=== PATIENT | female | born 1990 | race Caucasian/White ===

== ENCOUNTER → 2016-09-11 | Outpatient (CLI) | payer OTHER ==
[~2016-09-11] MED LIST: AMOX500C PO; BUSP5TA PO; ENOX80SY SC; FLUO20CA9 PO; HEPA50VL IM; PERCOCET PO; PROTPAK PO; ZOLO100T PO; ZOLO25TA PO
[2016-09-11 10:05] LABS: MEAN CORPUSCULAR HEMOGLOBIN 30.2 pg (27.0-33.0); MEAN CORPUSCULAR HGB CONC 33.9 g/dl (32.0-36.5); RED CELL DISTRIBUTION WIDTH 13.6 % (11.5-14.5); WHITE BLOOD COUNT 4.9 K/mm3 (4.0-10.0)
[2016-09-11 10:38] LABS: ALBUMIN 3.9 GM/DL (3.2-5.2); ALBUMIN/GLOBULIN RATIO 1.15 (1.00-1.93); ALKALINE PHOSPHATASE 66 U/L (45-117); ALT/SGPT 40 U/L (12-78); ANION GAP 7 MEQ/L (8-16); AST/SGOT 29 U/L (15-37); BILIRUBIN,DIRECT < 0.1 MG/DL (0.0-0.2); BILIRUBIN,TOTAL 0.3 MG/DL (0.2-1.0); BLOOD UREA NITROGEN 13 MG/DL (7-18); CALCIUM LEVEL 9.1 MG/DL (8.5-10.1); CARBON DIOXIDE LEVEL 29 MEQ/L (21-32); CHLORIDE LEVEL 106 MEQ/L (98-107); CREATININE FOR GFR 0.73 MG/DL (0.55-1.02); GLOMERULAR FILTRATION RATE > 60.0 (>60); GLUCOSE, FASTING 83 MG/DL (70-105); POTASSIUM SERUM 4.2 MEQ/L (3.5-5.1); SODIUM LEVEL 142 MEQ/L (136-145); THYROXINE (T4) 6.3 UG/DL (4.5-12.0); TOTAL PROTEIN 7.3 GM/DL (6.4-8.2)
== END ==
LOC: M LAB 09:29
PROVIDERS: ATTEND Nurse Practitioner Psychiatric/Mental Health
DX: F32.9 Major depressive disorder, single episode, unspecified (principal)

== ENCOUNTER 2016-10-06 14:59 | Emergency (ER) | payer OTHER ==
[~2016-10-06] VITALS: Ht 160 cm; Wt 90.7 kg
[2016-10-06] MEDS ORDERED: LEXA1TAB PO (15:16)
--- NOTE | 2016-10-06 17:24 | REP ---
Clinical: Left lower extremity pain . Technique: Brian scale and color Doppler evaluation using linear high frequency transducer. Findings: Ultrasound examination of the left lower extremity deep venous structures from the common femoral vein to the popliteal vein demonstrates normal compressibility flow and wave patterns in response to respiration and augmentation. Echogenic material from the common femoral vein to the mid femoral vein is most consistent with chronic thrombus and fibrous band when compared to prior examination dated 10/17/2015. Impression: Fibrous band and chronic nonocclusive thrombus as compared to 10/17/2015. Current examination demonstrates normal compressibility without findings to suggest acute or occlusive thrombus. Signed by Nikolas Ruiz MD 10/06/2016 05:15 P
[2016-10-06] MEDS ORDERED: IBUP600T26 PO (17:37)
[2016-10-06] MEDS ORDERED: CYCL10TA PO (17:37)
[2016-10-06 17:58] VITALS: BP 119/77
== END 2016-10-06 18:09 | disposition home or self-care (01) ==
LOC: M ED 17:10
DX: I80.12 Phlebitis and thrombophlebitis of left femoral vein (principal); Z79.899 Other long term (current) drug therapy

== ENCOUNTER 2016-12-04 20:19 | Emergency (ER) | payer OTHER ==
[~2016-12-04] VITALS: Ht 160 cm; Wt 90.7 kg
[~2016-12-04 20:19] MED LIST changes: +CYCL10TA PO; +IBUP600T26 PO; +LEXA1TAB PO
[2016-12-04] MEDS ORDERED: BUSP10TA PO (20:32)
[2016-12-04 20:57] LABS: BASO % 0.2 % (0.0-1.0); EOS # 0.1 K/mm3 (0.0-0.50); EOS % 0.8 % (0.0-3.0); LARGE UNSTAINED CELL # 0.1 K/mm3 (0.0-0.4); LARGE UNSTAINED CELL % 1.9 % (0.0-4.0); LYMPH # 2.2 K/mm3 (1.5-6.5); LYMPH % 31.3 % (24.0-44.0); MEAN CORPUSCULAR HEMOGLOBIN 30.8 pg (27.0-33.0); MEAN CORPUSCULAR HGB CONC 33.8 g/dl (32.0-36.5); MEAN CORPUSCULAR VOLUME 91.1 fl (80.0-96.0); MONO # 0.4 K/mm3 (0.0-0.8); MONO % 5.4 % (0.0-5.0); NEUTROPHILS # 4.3 K/mm3 (1.8-7.7); NEUTROPHILS % 60.4 % (36.0-66.0); PLATELET COUNT, AUTOMATED 293 k/mm3 (150-450); RED CELL DISTRIBUTION WIDTH 12.8 % (11.5-14.5); WHITE BLOOD COUNT 7.1 K/mm3 (4.0-10.0)
[2016-12-04 21:03] LABS: INR 0.91
[2016-12-04 21:11] LABS: CONTROL LINE HCG INT CTR LINE PRESENT
[2016-12-04 21:15] LABS: ANION GAP 7 MEQ/L (8-16); BLOOD UREA NITROGEN 17 MG/DL (7-18); CARBON DIOXIDE LEVEL 27 MEQ/L (21-32); CHLORIDE LEVEL 109 MEQ/L (98-107); CREATININE FOR GFR 0.89 MG/DL (0.55-1.02); GLOMERULAR FILTRATION RATE > 60.0 (>60); GLUCOSE, FASTING 106 MG/DL (70-105); POTASSIUM SERUM 3.6 MEQ/L (3.5-5.1); SODIUM LEVEL 143 MEQ/L (136-145)
[2016-12-04] MEDS ORDERED: ISOVUE-370 76% 100ML VIAL (Q9967) As Ordered ONE (21:31)
[2016-12-04 21:40] LABS: ABG BASE EXCESS -1.3 (-2.0-2.0); ABG HCO3 21.7 MEQ/L (22.0-26.0); ABG PARTIAL PRESSURE CO2 31.6 mmHg (35.0-45.0); ABG PARTIAL PRESSURE O2 105.3 mmHg (75.0-100.0); ABG STANDARD HCO3 23.4 MEQ/L (22.0-26.0); ABG TOTAL CO2 22.7 MEQ/L (22.0-29.0); ABG pH (ARTERIAL) 7.455 UNITS (7.350-7.450)
--- NOTE | 2016-12-04 22:10 | REPUSA ---
CT angiogram of the chest Clinical statement: Chest pain and shortness of breath. Technique: Multiple axial CT images were obtained from the thoracic inlet through the upper abdomen a fter a bolus administration of nonionic intravenous contrast. Coronal and sagittal reconstructions we re also obtained. Comparison: None. Findings: The pulmonary arteries are well-opacified with contrast, with no intraluminal filling defec ts to suggest embolism. The thoracic aorta is unremarkable. Thyroid gland is within normal limits. Th ere is no thoracic lymphadenopathy. There are no pericardial or pleural effusions. The lungs are blanca r. Limited imaging of the upper abdomen is unremarkable. There are no suspicious osseous lesions. Impression: Unremarkable CT examination of the chest. No evidence of pulmonary embolism.
--- NOTE | 2016-12-04 22:30 | REPUSA ---
Clinical history: Pain, swelling. Findings: The Left common femoral, superficial femoral, popliteal, and other deep venous structures c ompress normally and demonstrate normal color Doppler flow. Normal venous waveforms with augmentation are seen. Impression: No evidence of deep vein thrombosis in the left femoral popliteal venous system.
[2016-12-04 22:46] VITALS: BP 104/68
== END 2016-12-04 22:47 | disposition home or self-care (01) ==
LOC: EDBD 20:19 → M ED 20:51
DX: R06.00 Dyspnea, unspecified (principal)

== ENCOUNTER → 2016-12-17 | Outpatient (REF) ==
[~2016-12-17] MED LIST changes: +BUSP10TA PO
--- NOTE | 2016-12-17 10:10 | REP ---
Lumbar spine series: Limited study three views. History: Degenerative disc disease. Findings: Lumbar vertebral body heights are preserved. Alignment is normal. Disc spaces are maintained. The pedicles and the posterior elements are intact. There is no evidence of spondylolysis or spondylolisthesis. Psoas margins are intact. Sacrum and SI joints are unremarkable. The visualized bowel gas pattern is normal. Impression: Negative views to the lumbar spine. Signed by Alvaro Bermudez MD 12/17/2016 10:19 A
== END ==
LOC: M SMT 08:59
PROVIDERS: ATTEND Internal Medicine
DX: M54.5 Low back pain (principal)

== ENCOUNTER → 2018-04-19 | Outpatient (REF) | payer OTHER | LOC: M LAB REF 04-20 12:22 | DX: N30.01 Acute cystitis with hematuria (principal) ==

== ENCOUNTER → 2018-04-29 | Outpatient (REF) | payer OTHER | LOC: M LAB REF 19:15 | DX: R30.0 Dysuria (principal) | CPT/HCPCS: 87086 ==